=== PATIENT | female | born 1995 ===

== ENCOUNTER 2019-01-29 11:47 | Inpatient (IN) ==
[2019-01-29] MEDS ORDERED: Metoclopramide 10 MG/2 ML VIAL IVP PRN (12:21)
[2019-01-29] MEDS ORDERED: Ondansetron 4 MG/2 ML VIAL IVP PRN ×2 (12:21→18:41)
[2019-01-29] MEDS ORDERED: Famotidine 20 MG/2 ML VIAL IVP PRN (12:21)
[2019-01-29] MEDS ORDERED: Naloxone 0.4 MG/ML INJ IVP PRN ×2 (12:21→18:41)
[2019-01-29] MEDS ORDERED: *HR* Nalbuphine 10 MG/ML AMPUL IVP PRN (12:21)
[2019-01-29] MEDS ORDERED: Ringers Solution, Lactated 1,000 ML ONE (12:23)
[2019-01-29] MEDS ORDERED: Ringers Solution, Lactated 1,000 ML IVC SCH ×2 (12:30→18:41)
[2019-01-29 12:46] LABS: Basophils # 0.1 K/mcL (0.0-0.2); Basophils % 0.5 %; Eosinophils # 0.1 K/mcL (0.0-0.6); Eosinophils % 0.7 %; Hematocrit 38.7 % (35.3-44.9); Hemoglobin 12.7 g/dL (11.5-15.4); Immature Granulocytes % 0.8 % (0-4); Lymphocytes # 2.2 K/mcL (0.6-4.6); Lymphocytes % 10.5 %; Mean Corpuscular HGB Conc 32.8 g/dL (31.6-35.5); Mean Corpuscular Hemoglobin 30.5 pg (28.0-33.3); Mean Platelet Volume 10.8 fL (9.4-12.4); Monocytes # 1.1 K/mcL (0.0-1.3); Monocytes % 5.2 %; Platelet Count 271 K/mcL (140-400); Red Blood Count 4.16 M/mcL (3.82-4.97); Red Cell Distribution Width 12.9 % (11.5-14.5); Segmented Neutrophils % 82.3 %
[2019-01-29] MEDS ORDERED: Epidural Premix (fent/bupiv) 110 ML EP ONE (12:57)
[2019-01-29] MEDS ORDERED: Epidural Premix (fent/bupiv) 110 ML EP SCH (13:00)
[2019-01-29 13:13] LABS: Amphetamine Screen,Urine Negative ng/mL (Cutoff=1000); Barbiturate Screen,Urine Negative ng/mL (Cutoff=200); Benzodiazepines Screen,Urine Negative ng/mL (Cutoff=200); Cannabinoid Screen,Urine Positive ng/mL (Cutoff = 50); Cocaine Screen,Urine Negative ng/mL (Cutoff= 300); Opiate Screen,Urine Negative ng/mL (Cutoff=300); Phencyclidine Screen,Urine Negative ng/mL (Cutoff=25)
--- NOTE | 2019-01-29 13:22 | Anesthesia Evaluation PreOp ---
Date of Encounter: 01/29/19 Time of Encounter: 13:21 - Past History Planned Operation: JESSICA Cardiac History: Denies any Significant Hx Pulmonary History: Smoker, Asthma RADIO ASSEMBLER History: Denies Any Significant HX Other Medical History: Denies Any Significant HX Anesthesia History: No Prior Anesthetic Complications : Yes Alcohol Use: none Drug use: none Medications and Allergies Allergy/AdvReac Type Severity Reaction Status Date / Time diphenhydramine Allergy See Verified 01/29/19 12:31 [From [facility] Allergy] Comments Erythromycin Base Allergy See Verified 01/29/19 12:29 Comments - Meds/Allergy Pre-op Review Medications Reviewed: Yes Allergies Reviewed: Yes Beta Blockers on Current Med List: No Anesthesia Results - Labs 01/29/19 12:14 Anesthesia Exam O2 Sat Height 1.65 m Weight 91.354 kg NPO (# of Hours): 2 Pain Scale: 10 Pain Scale Used: Numeric (1 - 10) - HEENT Pupil (Motor): Pupils equal Mallampati: II Teeth: Normal Oral Opening: Greater than 3 - RADIO ASSEMBLER LOC: Oriented RADIO ASSEMBLER Motor: Normal RUE, Normal LUE, Normal RLE, Normal LLE, Normal Face RADIO ASSEMBLER Sensory: Normal: RUE, LUE, RLE, LLE, Face - Cardiac Rhythm: Regular Murmur: None JVD: No Carotid Bruit: No - Pulmonary Breath Sounds: bilateral Clear Respiratory Effort: Symmetrical Anesthesia Assess/Plan ASA Score: 2 Level of consciousness: Cooperative, Oriented Anesthetic Plan: General, Epidural Autologous Blood: Yes Monitoring Plan: Standard Monitors
--- NOTE | 2019-01-29 13:23 | Anesthesia Procedures ---
Date of Encounter: 01/29/19 Time of Encounter: 13:22 Procedures: Anesthesia - Epidural/Spinal Patient ID/Chart reviewed: Yes Patient examined: Yes OB Eval: Gestational age: 37 OB Eval: : 2 OB Eval: Hx Para: 1 OB Eval: Dilated at (cm): 4 OB Eval: Contractions: Non-stressed pattern Consent Obtained: Yes Supplemental Oxygen: None/Room Air Site Prep: Aseptic Technique, Sterile prep and drape, Povidone-Iodine 1% Patient position: upright Local Anesthetic: Lidocaine 1% Amount of Local Anesthetic used: 3 Touhy Needle Gauge: 18 Touhy Needle Depth (cm): 9 Catheter Depth at Skin (cm): 20 Test Dose (1.5% Lido + Epi): Volume given (mls): 5 Test Dose Result: Negative Loading Dose: Other: 10mls epidural pharm bag Loading Dose Administered: Thru Catheter Infusion Med: 0.125% Bupivacaine w/ 2 mcg/ml Fentanyl Infusion Rate (mls/hr): 15 ([id number]) Catheter Secured in Place: Tegaderm, Tape Interspace Used: L3-L4 Loss of Resistance (AURORA): Yes Blood: No CSF: No Paresthesia: No Procedure: pt tolerated procedure well. no complications. vss. fhr stable.
--- NOTE | 2019-01-29 15:23 | OB/GYN History & Physical ---
Date of Encounter: 01/29/19 Time of Encounter: 15:12 Assessment and Plan (1) 38 weeks gestation of Current visit: Yes Status: Acute presents with vaginal bleeding at 38 w 1d with unknown time of rupture of membrane GBS status unknown. Syphilis untested - rpr - gbs vaginal swab sent - pitocin per protocil - epidural as desired (2) Spontaneous onset of labor Current visit: Yes Status: Acute (3) Vaginal bleeding Current visit: Yes Status: Acute (4) Leukocytosis Current visit: Yes Status: Acute WBC of 20 with out left shift may be due to labor v infection Qualifiers: Leukocytosis type: unspecified Qualified Code(s): D72.829 - Elevated white blood cell count, unspecified (5) Headache Current visit: Yes Status: Resolved Headache with aura like symptoms but with out evlated blood pressure at 102/67 at admit - Tylenol prn Qualifiers: Headache type: unspecified Headache chronicity pattern: unspecified pattern Intractability: not intractable Qualified Code(s): R51 - Headache (6) Marijuana use Current visit: Yes Status: Acute UDS positive for marijuana - social work consult History of Present Illness Chief complaint: Vaginal Bleeding at 38 weeks HPI: Ms. Gill is a 23 year old female presented at 38 w 1d for vaginal bleeadin on set around 10 am this morning with out trigger. She describes loss of small volume of blood with out clear fluid denies water breaking but reports she was unable to stop urinating yesterday afternoon time unknown . She follows with Dr Glynn at [facility] but was last seen on 12-15-18. In last two days headacbe with aura resolved with out mediations with history of migraine associated with blurry vision and migrating paratheasia. . Denies history of GHTN or GDM but previously treated for hypoglycemia to BG 33 after decreased PO intake. Her has been complicated by persistent dizziness and nausea limiting her PO intake with weight loss from pre weight of 194 lbs. Previously vaginal delivery complicated with prolonged labor for 5 days per patient. PMHx migraine, anxiety, depression, and asthma no requiring inhaler. Smoker. FM history of DVT in mother. Blood type A -, antigen negative GBS status unknown Hep B s NR HIV NR G/C negative Rubella Immune Varicella, treponoma and UDS not completed out patient Past Med Surg Social Fam HX - Past Medical History Medical history: other Additional medical history: asthma Psychiatric history: depression - Past Surgical History Surgical History: no surgical history - Social History Smoking Status: Current every day smoker Alcohol use: none Drug use: none - Family History Mother Living Status: Still Living Hx Family Cardiac Disorders: Yes (a fib) Obstetrical History - Pregnancies : 2 Para: 1 Term: 1 : 0 Ab's: 0 Livin Medications and Allergies Allergy/AdvReac Type Severity Reaction Status Date / Time diphenhydramine Allergy See Verified 01/29/19 12:31 [From [facility] Allergy] Comments Erythromycin Base Allergy See Verified 01/29/19 12:29 Comments Review of System OB All systems PM: reviewed and no additional remarkable complaints except as stated - Constitutional Constitutional ROS IM: fatigue, no fever(s), no weakness - Eyes Eyes: bilateral: blurred vision - Nose, mouth, and throat Nose, mouth and throat: dizziness, headache(s) - Cardiovascular Cardiovascular: no chest pain, no edema - Respiratory Respiratory: no cough, no dyspnea - Gastrointestinal Gastrointestinal: nausea, no abdominal pain, no diarrhea - Genitourinary Genitourinary: no difficulty urinating, no hematuria, no urinary hesitancy - Muscloskeletal Musculoskeletal: as per HPI, tingling, no muscle cramps - Neurological Nerological: dizziness, headache(s), no syncope - Psychiatric Psychiatric: anxiety, no suicidal ideation Exam - Constitutional Constitutional: well developed, well nourished, no acute distress - HEENT HEENT: EOMI, PERRL, Normocephaly, Mucus Membranes Moist - Neck Neck exam: full ROM - Lungs Respiratory exam: CTAB - Cardiovascular Cardiovascular exam: RRR - Abdomen Abdomen: Present: bowel sounds normal, non tender - Extremities Extremities exam: full ROM - Comments Comments: Neuro; CN 2-12 intact, upper extremity and sensation intake, no focal deficits Results Result Diagrams: 01/29/19 12:14 Abnormal lab results WBC 20.7 K/mcL (4.3-11.1) H 01/29/19 12:14 17.0 K/mcL (1.6-8.9) H 01/29/19 12:14 U Marijuana (THC) Screen Positive ng/mL (Cutoff = 50) H 01/29/19 12:21 All other labs normal. - VTE Reasons for not Prescribing Prophylaxis: Treatment not Indicated - Low risk for VTE - Attending Attestation I examined this patient and my medical decision making was reviewed with the resident physician. I agree with the documented findings, disposition, and treatment plan as described above. Patient is here for spontaneous labor. Upon arrival patient was complaining of vaginal bleeding so I performed a speculum examination which revealed moderate amount of bright red blood coming from the cervical os. Patient was found to be 4 cm dilated with significant painful contractions. She was admitted for spontaneous labor at 38 weeks and 1 day.
[2019-01-29] MEDS ORDERED: cefTRIAXone 1,000 MG in Water for inj. (sterile) 20 ML 10 ML IVP STA (16:37)
--- NOTE | 2019-01-29 16:58 | OB/GYN Procedure Note ---
Delivery - Delivery Date: 01/29/19 Provider: Laurie Marcelino Intrapartum events: none Delivery induction: none Delivery monitor: external FHT, external uterine Anesthesia: epidural Quantitated Blood Loss: 450 - (s) Infant A Delivery Date: 01/29/19 Delivery Time: 16:18 Presentation: vertex Position: KATHE Route of delivery: Gender: Male Viability: Viable Pounds: 6 Ounces: 14 Weight Gram: 3.25 kg at 1 minute: 8 at 5 mins: 9 Shoulder Dystocia: not encountered Specimens collected: cord blood Placenta: spontaneous, uterine exploration, other (Dr. Heard performed bedside currette), retained Cord: nuchal cord, 3 umbilical vessels, delivered through nuchal - Repair Episiotomy: none Laceration Description: Superficial - Complications Delivery complications: retained placenta (retained membrane fragments), other Delivery comments: Called to room for delivery, patient complete and feeling pressure. I was gowned and gloved and together with Sandi Ragsdale DO, PGY1. Under maternal effort, spontaneous delivery of viable male infant over intact perineum. Small superficial separation of skin noted at vaginal opening. placed on maternal abdomen for drying and stimulation. Cord clamped and cut after pulsation ceased. Spontaneous delivery of placenta, EBL 450 mLs. Nuchal cord x 1, delivered through. No shoulder dystocia, or meconium encountered. Patient noted to have moderate amount of bleeding after placenta delivered. Manual exploration of uterus revealed several small fragments of placenta and continued bleeding was noted. Methergine was given and Dr. Heard was called for further evaluation. Cytotec was also given po. Mother and infant in kangaroo care for 2 hour recovery. - Disposition Mom disposition: stable in LDR disposition: stable in LDR
[2019-01-29] MEDS ORDERED: miSOPROStol 100 MCG TABLET PO ONE (17:28)
[2019-01-29] MEDS ORDERED: Methylergonovine 0.2 MG/ML AMPUL IM ONE (17:28)
--- NOTE | 2019-01-29 17:40 | OB/GYN Procedure Note ---
OB-DYNAMOMETER TESTER: Procedure - Diagnosis Date of procedure: 01/29/19 Pre-op diagnosis: Retained placental fragments, post op hemorrhage Post-op diagnosis: same - Procedure Procedure: uterine curretage Surgeon: Mike Heard Was there an assistant quality manager present: No Anesthesia Type: Epidural Estimated blood loss (cc): 450 Fluids: crystalloid Procedure Complications: none Specimens collected: placental fragments Disposition: other (delivery room) Findings: retained membranes in right cornua Narrative: Patient is status post normal spontaneous vaginal delivery without complications. Within had delivery what appeared to be intact placenta. Was noted by the delivering erp technical lead the patient is having significant bleeding and she was given Methergine 0.2 mg IM. Bimanual exam revealed retained membranes and therefore I was called. I did attempt to manually remove remaining membranes however there was quite significant amount membranes in the right cornua was difficult to palpate. I did use large banjo curet to perform gentle sharp curettage of the cornea revealing small amount of residual membranous tissue. Again bimanual exam was performed and there was no residual tissue palpated. Patient was given misoprostol 600 g by mouth and uterus was massaged until firm. Minimal residual bleeding was noted at this point and procedure was terminated. Estimated total blood loss of the delivery and the procedure was 450 mL
--- NOTE | 2019-01-29 18:24 | OB Labor Progress Note ---
Date of Encounter: 01/29/19 Time of Encounter: 13:30 Labor Progress Note - Subjective Subjective: Patient comfortable with epidural in place - Vital Signs Vital Signs: WNL - Cervix Cervix: 5/80/0 - Heart Tones Heart Tones: FHR 130 bpm, moderate variability, +15x15 accels, no decels. - [place]: q2-3 minutes - Interventions Interventions: SVE after epidural placement - Plan Physician notified: Yes Physician notified details: Dr. Heard was notified of patient's arrival and current SVE as well as bleeding. Plan: Continue expectant management Anticipate
[2019-01-29] MEDS ORDERED: Rho Immune Globulin 1,500 UNIT SYRINGE IM PRN (18:41)
[2019-01-29] MEDS ORDERED: Oxytocin 20 units/ LR 1000 mL 20 UNIT/1,000 ML BAG IVC SCH (18:41)
[2019-01-29] MEDS ORDERED: Lanolin 7 G OINT...G. TP PRN (18:41)
[2019-01-29] MEDS ORDERED: Measles/Mumps/Rubella Vacc 0.5 ML VIAL SQ PRN (18:41)
[2019-01-29] MEDS: Ibuprofen 600 MG TABLET PO PRN (19:20)
[2019-01-29] MEDS: Acetaminophen 325 MG TABLET PO PRN (20:40)
[2019-01-30] MEDS: Ibuprofen 600 MG TABLET PO PRN ×3 (05:16→18:38)
[2019-01-30 05:23] LABS: Basophils # 0.1 K/mcL (0.0-0.2); Basophils % 0.4 %; Eosinophils # 0.1 K/mcL (0.0-0.6); Eosinophils % 0.6 %; Hematocrit 31.9 % (35.3-44.9); Immature Granulocytes % 0.8 % (0-4); Lymphocytes # 3.3 K/mcL (0.6-4.6); Lymphocytes % 17.5 %; Mean Corpuscular HGB Conc 32.9 g/dL (31.6-35.5); Mean Corpuscular Hemoglobin 30.8 pg (28.0-33.3); Mean Corpuscular Volume 93.5 fL (83.0-100.0); Mean Platelet Volume 10.9 fL (9.4-12.4); Monocytes # 1.6 K/mcL (0.0-1.3); Monocytes % 8.4 %; Neutrophils # 13.5 K/mcL (1.6-8.9); Platelet Count 230 K/mcL (140-400); Red Blood Count 3.41 M/mcL (3.82-4.97); Segmented Neutrophils % 72.3 %
[2019-01-30 05:29] LABS: Hemoglobin 10.5 g/dL (11.5-15.4)
[2019-01-30] MEDS: Prenatal Vit/FA 1 EACH TABLET PO SCH (09:09)
--- NOTE | 2019-01-30 09:30 | OB/GYN Progress Note ---
Date of Encounter: 01/30/19 Time of Encounter: 09:27 - Assessment and Plan (1) Vaginal delivery Current Visit: Yes Status: Acute Meeting all day 1 milestones Continue routine care Patient offered to guest and declined Anticipate discharge home tomorrow (2) Acute blood loss anemia Current Visit: Yes Status: Acute Continue iron supplementation daily (3) Marijuana use Current Visit: Yes Status: Acute Social work consult placed Subjective - Subjective Principal diagnosis: s/p Interval history: Feeling well. Out of bed without dizziness. Some perineal discomfort-using ice pack. Cramping minimal, using ibuprofen. Bottlefeeding every 2-3 hours. Voiding without difficulty. Passing flatus, no BM yet. Tolerating regular diet. Patient reports: appetite normal, voiding normally, pain well controlled, ambulating normally : doing well, bottle feeding Objective - Latest Vital Signs Latest vital signs: Vital Signs Temp Pulse Resp BP Pulse Ox 01/30/19 07:30 97.7 F 70 16 111/67 01/30/19 05:18 97.9 F 72 16 105/69 100 01/29/19 21:04 98.1 F 64 16 111/52 95 01/29/19 20:27 58 115/61 01/29/19 19:58 97.8 F 62 16 118/68 98 01/29/19 18:47 54 16 105/59 Intake and Output 01/29/19 01/30/19 01/30/19 23:59 07:59 15:59 Intake Total 200 / 200 Output Total 650 / 650 500 / 500 Balance -650 / -650 -300 / -300 Intake: Oral 200 / 200 Output: Urine 200 / 200 500 / 500 Estimated Blood Loss 450 / 450 Other: Weight 89.7 kg 87.77 kg Patient Weight 01/30/19 23:59 Weight 87.77 kg - Exam Lungs: bilateral: normal Chest: Normal S1, Normal S2 Extremities: Present: normal, tenderness Abdomen: Present: normal appearance, soft Uterus: Present: normal, firm Uterus Position: At Umbilicus, Midline - Labs Labs: Laboratory Results - last 24 hr 01/29/19 01/29/19 01/29/19 12:14 12:21 18:41 WBC 20.7 H RBC 4.16 Hgb 12.7 Hct 38.7 MCV 93.0 MCH 30.5 MCHC 32.8 RDW 12.9 Plt Count 271 MPV 10.8 Immature Gran % 0.8 Seg Neutrophils % 82.3 Lymphocytes % 10.5 Monocytes % 5.2 Eosinophils % 0.7 Basophils % 0.5 Neutrophils # 17.0 H Lymphocytes # 2.2 Monocytes # 1.1 Eosinophils # 0.1 Basophils # 0.1 Urine Opiates Screen Negative Ur Barbiturates Screen Negative Ur Phencyclidine Scrn Negative Ur Amphetamines Screen Negative U Benzodiazepines Scrn Negative Urine Cocaine Screen Negative U Marijuana (THC) Screen Positive H Ur Drug Screen Interp See Below T.pallidum Ab Interpret Negative 01/30/19 05:09 WBC 18.6 H RBC 3.41 L Hgb 10.5 L D Hct 31.9 L MCV 93.5 MCH 30.8 MCHC 32.9 RDW 13.0 Plt Count 230 MPV 10.9 Immature Gran % 0.8 Seg Neutrophils % 72.3 Lymphocytes % 17.5 Monocytes % 8.4 Eosinophils % 0.6 Basophils % 0.4 Neutrophils # 13.5 H Lymphocytes # 3.3 Monocytes # 1.6 H Eosinophils # 0.1 Basophils # 0.1 Urine Opiates Screen Ur Barbiturates Screen Ur Phencyclidine Scrn Ur Amphetamines Screen U Benzodiazepines Scrn Urine Cocaine Screen U Marijuana (THC) Screen Ur Drug Screen Interp T.pallidum Ab Interpret
[2019-01-30] MEDS: Acetaminophen 325 MG TABLET PO PRN ×2 (17:00→21:17)
[2019-01-31] MEDS: Ibuprofen 600 MG TABLET PO PRN ×2 (02:02→08:07)
[2019-01-31 08:02] VITALS: BP 99/58
[2019-01-31] MEDS: Prenatal Vit/FA 1 EACH TABLET PO SCH (08:07)
--- NOTE | 2019-01-31 08:35 | Discharge Summary ---
Date of Encounter: 01/31/19 Time of Encounter: 08:33 - Discharge Diagnosis (1) Vaginal delivery Priority: Primary Status: Acute Comments: Patient meeting day two milestones. Pain well-controlled with prescribed medications. Voiding without difficulty, tolerating regular diet, bleeding light. No bowel movement yet. Anticipate discharge today. (2) Marijuana use Priority: Secondary Status: Acute Comments: Follow-up with social work faculty member - Discharge Medications Prescriptions: New Ferrous Sulfate 325 mg PO DAILY #30 tablet Acetaminophen [Tylenol] 650 mg PO Q6HR PRN tablet PRN Reason: Mild Pain Ibuprofen [Motrin] 600 mg PO Q6HR PRN #60 tablet PRN Reason: Cramping Docusate [Colace] 100 mg PO BID capsule Home Medications: Acetaminophen [Tylenol] 650 mg PO Q6HR PRN tablet 01/31/19 [Rx] Docusate [Colace] 100 mg PO BID capsule 01/31/19 [Rx] Ferrous Sulfate 325 mg PO DAILY #30 tablet 01/31/19 [Rx] Ibuprofen [Motrin] 600 mg PO Q6HR PRN #60 tablet 01/31/19 [Rx] Allergies/Adverse Reactions: Allergy/AdvReac Type Severity Reaction Status Date / Time diphenhydramine Allergy See Verified 01/29/19 12:31 [From [facility] Allergy] Comments Erythromycin Base Allergy See Verified 01/29/19 12:29 Comments Data Procedures and tests throughout hospitalization: Laboratory Tests 01/29/19 01/29/19 01/29/19 12:14 12:21 18:41 WBC 20.7 H RBC 4.16 Hgb 12.7 Hct 38.7 MCV 93.0 MCH 30.5 MCHC 32.8 RDW 12.9 Plt Count 271 MPV 10.8 Immature Gran % 0.8 Seg Neutrophils % 82.3 Lymphocytes % 10.5 Monocytes % 5.2 Eosinophils % 0.7 Basophils % 0.5 Neutrophils # 17.0 H Lymphocytes # 2.2 Monocytes # 1.1 Eosinophils # 0.1 Basophils # 0.1 Urine Opiates Screen Negative Ur Barbiturates Screen Negative Ur Phencyclidine Scrn Negative Ur Amphetamines Screen Negative U Benzodiazepines Scrn Negative Urine Cocaine Screen Negative U Marijuana (THC) Screen Positive H Ur Drug Screen Interp See Below T.pallidum Ab Interpret Negative 01/30/19 05:09 WBC 18.6 H RBC 3.41 L Hgb 10.5 L D Hct 31.9 L MCV 93.5 MCH 30.8 MCHC 32.9 RDW 13.0 Plt Count 230 MPV 10.9 Immature Gran % 0.8 Seg Neutrophils % 72.3 Lymphocytes % 17.5 Monocytes % 8.4 Eosinophils % 0.6 Basophils % 0.4 Neutrophils # 13.5 H Lymphocytes # 3.3 Monocytes # 1.6 H Eosinophils # 0.1 Basophils # 0.1 Urine Opiates Screen Ur Barbiturates Screen Ur Phencyclidine Scrn Ur Amphetamines Screen U Benzodiazepines Scrn Urine Cocaine Screen U Marijuana (THC) Screen Ur Drug Screen Interp T.pallidum Ab Interpret Labs on day of discharge: Preliminary micro results at discharge 01/29/19 12:05 Group B Streptococcus Culture - Preliminary Vaginal Culture is incubating. Date of admission: 01/29/19 11:47 Primary care physician: PCP LOREE Consults: 01/29/19 18:41 Consult to Business Banker [CONS] Routine Comment: Vaginal delivery, consult needed Consult to Plastics Factory Worker [CONS] Routine Reason for SW Consult: rajiv UDS positive Discharging clinician: Laurie Marcelino Anticipated date of discharge: 01/31/19 - Patient Status Disposition: Home, Self-Care Condition: Good Functional capacity at discharge: independent ambulation Overall status at discharge: patient is progressing back to baseline - Discharge Instructions Follow Up With: LOREE,PCP [Primary Care Provider] - - Diet and Activity Activity: resume usual activities as tolerated Diet: regular diet Hospital Course Reason for admission: active labor Delivery: Episiotomy: none Laceration: other (superficial) Other procedures: curettage complications: retained placenta (retained membranes) Discharge diagnosis: IUP at term delivered baby: male Hospital course: Delivery Date: 01/29/19 Provider: Laurie Marcelino Intrapartum events: none Delivery induction: none Delivery monitor: external FHT, external uterine Anesthesia: epidural Quantitated Blood Loss: 450 - Infant (s) A Delivery Date: 01/29/19 Delivery Time: 16:18 Presentation: vertex Position: KATHE Route of delivery: Gender: Male Viability: Viable Pounds: 6 Ounces: 14 Weight Gram: 3.25 kg at 1 minute: 8 at 5 mins: 9 Shoulder Dystocia: not encountered Specimens collected: cord blood Placenta: spontaneous, uterine exploration, other (Dr. Heard performed bedside currette), retained Cord: nuchal cord, 3 umbilical vessels, delivered through nuchal - Repair Episiotomy: none Laceration Description: Superficial - Complications Delivery complications: retained placenta (retained membrane fragments), other Delivery comments: Called to room for delivery, patient complete and feeling pressure. I was gowned and gloved and together with Sandi Ragsdale DO, PGY1. Under maternal effort, spontaneous delivery of viable male over intact perineum. Small superficial separation of skin noted at vaginal opening. placed on maternal abdomen for drying and stimulation. Cord clamped and cut after pulsation ceased. Spontaneous delivery of placenta, EBL 450 mLs. Nuchal cord x 1, delivered through. No shoulder dystocia, or meconium encountered. Patient noted to have moderate amount of bleeding after placenta delivered. Manual exploration of uterus revealed several small fragments of placenta and continued bleeding was noted. Methergine was given and Dr. Heard was called for further evaluation. Cytotec was also given po. Mother and in kangaroo care for 2 hour recovery. - Disposition Mom disposition: stable in LDR [place] disposition: stable in LDR Time Attestation: Total time spent providing and/or coordinating discharge services: Time Spent: Less than 30 minutes Exam - Constitutional Vitals: Temp Pulse Resp BP Pulse Ox 98.1 F 64 16 99/58 99 01/31/19 08:01 01/31/19 08:01 01/31/19 08:01 01/31/19 08:01 01/31/19 03:58 General appearance IM: A&O X 3, pleasant, no acute distress, answers questions appropriately - Respiratory Respiratory exam: Present: CTAB - Cardiovascular Cardiovascular exam IM: Present: RRR, +S1, +S2 - GI/Abdominal GI/Abdominal exam IM: normal bowel sounds, soft - Rectal Rectal exam: deferred - External exam: normal external exam Uterine Tone: Firm Uterus Position: 1 Finger Below Umbilicus, Midline - Extremities Exam Extremities exam IM: Present: full ROM, normal capillary refill, normal inspection - Neurological Exam Neurological exam: alert, normal gait, oriented X3
[2019-01-31] MEDS ORDERED: miSOPROStol 100 MCG TABLET PO ONE (10:46)
[2019-01-31] MEDS ORDERED: Methylergonovine 0.2 MG/ML AMPUL IM ONE (10:46)
== END 2019-01-31 10:47 | disposition home or self-care (01) | DRG 541 ==
LOC: 1NENULAB → OBSVTOIN 11:47 → 1NENUOBS 19:40
PROVIDERS: ADMIT Registered Nurse; ATTEND Registered Nurse